=== PATIENT | male | born 1995 | race Caucasian/White ===

== ENCOUNTER 2023-01-07 10:21 | Emergency (ER) | payer OTHER, SELFPAY ==
[2023-01-07 10:25] VITALS: BP 136/92; PULSE 64; RESP 15; TEMP 36.2; O2SAT 99; BMI 25.7
--- NOTE | 2023-01-07 10:34 | ED.BACK ---
HPI - Back Pain/Injury General Chief Complaint: Back Pain/Injury Stated Complaint: back pain Time Seen by Provider: 01/07/23 10:33 Source: patient History of Present Illness HPI Narrative: 27-year-old male nonsmoker with noncontributory medical history presents with a chief complaint of low back pain since the weekend which now radiates down his left leg. He states it is sharp and burning in nature and seems to be worse when he moves and improves with rest. He denies any fever or chills and has no specific trauma. He denies any loss of control of bowel or bladder. Denies any numbness, tingling or weakness of his lower extremities. He denies the use of blood thinners. He states that he had had some problems with his back that were related to lifting weights earlier in the year but those symptoms resolved with physical therapy. This weekend he was picking up some objects at home when he felt a pulling sensation in his back which now radiates down his leg Related Data Previous Rx's Medication Instructions Recorded cyclobenzaprine 10 mg tablet 10 mg PO TID PRN muscle spasm #14 01/07/23 tabs gabapentin 300 mg capsule 300 mg PO BEDTIME #14 caps 01/07/23 hydrocodone 5 mg-acetaminophen 325 1 tab PO Q4-6H PRN pain #10 tabs 01/07/23 mg tablet ketorolac 10 mg tablet 10 mg PO Q6H PRN pain #14 tabs 01/07/23 methylprednisolone 4 mg tablets in See Rx Instructions PO .COMPLEX 01/07/23 a dose pack (Medrol (Jet)) #21 ea Allergies Allergy/AdvReac Type Severity Reaction Status Date / Time No Known Drug Allergies Allergy Verified 01/07/23 10:25 Review of Systems Review of Systems Narrative: GENERAL: Denies chills, fatigue, malaise, fever, sweats. HEENT: Denies sinus pain, ear pain, sore throat, difficulty swallowing, dizziness. RESPIRATORY: Denies dyspnea, cough, wheezing, hemoptysis, sputum. CARDIOVASCULAR: Denies chest pain, palpitations, orthopnea, edema, GASTROINTESTINAL: Denies nausea, vomiting, abdominal pain, diarrhea, constipation, melena. : Denies dysuria, frequency, incontinence, hematuria, urinary retention. MUSCULOSKELETAL: See HPI SKIN: Denies rash, skin lesions, or other NEUROLOGIC: See HPI PSYCHIATRIC: No concerning psychosocial issues. 12 point review of systems is negative except for those stated above Patient History Social History Smoking Status: Unknown if ever smoked Smoking Status: Unknown if ever smoked alcohol intake frequency: a few times a week Substance Use Type: does not use Exam Narrative Exam Narrative: GENERAL: [27] year old patient appears stated age. Well-developed patient, in mild distress. HEAD: Atraumatic. Normocephalic. EYES: Pupils equal round and reactive. Extraocular motions intact. No scleral icterus. No injection or drainage. ENT: Nose without bleeding, purulent drainage. Throat without erythema, tonsillar hypertrophy or exudate. Airway patent. NECK: Trachea midline. Non tender CARDIOVASCULAR: Regular rate and rhythm without murmurs, gallops, or rubs. RESPIRATORY: Clear to auscultation. Breath sounds equal bilaterally. No wheezes, rales, or rhonchi. GASTROINTESTINAL: Abdomen soft, non-tender, nondistended. EXTREMITIES: No edema or joint tenderness. BACK: shaker tender but free of any obvious external abnormalities. Patient exam notes decreased range of motion and muscle spasm, but no CVA tenderness, or vertebral point tenderness. There are no symptoms of cauda equina such as saddle anesthesia, and decreased reflexes, decreased sensation or strength. NEURO: AOx3. SKIN: No rash or erythema of visible areas Initial Vital Signs Initial Vital Signs: Vital Signs Temperature 97.1 F L 01/07/23 10:25 Pulse Rate 64 01/07/23 10:25 Respiratory Rate 15 01/07/23 10:25 Blood Pressure 136/92 H 01/07/23 10:25 Pulse Oximetry 99 01/07/23 10:25 Oxygen Delivery Method 01/07/23 10:25 Course Orders Ordered: Discontinued Medications Ketorolac Tromethamine (Ketorolac 30 Mg/Ml Vial) 30 mg IM NOW ONE Stop: 01/07/23 10:50 Last Admin: 01/07/23 10:55 Dose: 30 mg Documented By: MATTI Prednisone (Prednisone 20 Mg Tablet) 40 mg PO NOW ONE Stop: 01/07/23 10:50 Last Admin: 01/07/23 10:55 Dose: 40 mg Documented By: MATTI Vital Signs Vital signs: Vital Signs - 8 hr 01/07/23 10:25 Temperature 97.1 F L Pulse Rate 64 Respiratory Rate 15 Blood Pressure 136/92 H Pulse Oximetry 99 Oxygen Delivery Method Room Air MDM - Back Pain/Injury MDM Narrative Medical decision making narrative: [27] year old patient presents with low back pain and radiation into his left leg Multiple etiologies for patient's symptoms considered including, but not limited to: [Muscle spasm, disc problem, epidural abscess, hematoma versus other] Prior Charts reviewed in our EMR Primary Historian: patient Multiple etiologies of back pain considered including; Epidural abscess, cauda equina, mass occupying lesion, and other considered, however thankfully his history and physical exam did not demonstrate any red flag findings to suggest a neurosurgical emergencies present Patient's symptoms improved over duration of stay with above-stated therapies. Findings and discharge diagnosis discussed with patient/family followed by verbalization of understanding Return precautions discussed with patient/family whom verbalize understanding of diagnosis and plan Discharge Plan Departure Patient Disposition: Home Clinical Impression: Acute back pain with radiculopathy Instructions: DI for Lumbar Radiculopathy Activity Restrictions/Additional Instructions: *You have been diagnosed with [acute lumbar radiculopathy. As we discussed your signs and symptoms are consistent with back spasm or perhaps a disc that is pressing on a nerve which radiates down your leg. Thankfully you have no signs or symptoms consistent with a neurosurgical emergency at this time.] *What to do: *Please continue to take your regular medications as directed. [x ] New medication prescriptions sent to your pharmacy: [ [facility]] [ ] New medication written as a paper prescription [ ] No new medications given *Please follow up with your primary care provider in 2-3 days, call for an appointment. Let them know you were seen in the Emergency Department and that we ask that you be seen in follow up. We will electronically transmit a record of today's note if your PCP is in our system *Return to Emergency Department if you should have any new, worsening or concerning symptoms, such as [fever greater than 101 F, shaking chills, loss of control of bowel or bladder, leg weakness You have been prescribed a short course of narcotic medications. These are potentially dangerous and addictive medications that should be used carefully. While on these medications you cannot drive or operate heavy machinery. Additionally, you cannot sign legal documents or perform any duties such as this. 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 Please understand that we cannot provide further refills of narcotics or controlled substances through the ED and your pain management will need to be through your Primary Care Provider Prescriptions: New cyclobenzaprine 10 mg tablet 10 mg PO TID PRN (Reason: muscle spasm) Qty: 14 0RF hydrocodone-acetaminophen 5-325 mg tablet 1 tab PO Q4-6H PRN (Reason: pain) Qty: 10 0RF ketorolac 10 mg tablet 10 mg PO Q6H PRN (Reason: pain) Qty: 14 0RF gabapentin 300 mg capsule 300 mg PO BEDTIME Qty: 14 0RF methylprednisolone [Medrol (Jet)] 4 mg tablets,dose pack See Rx Instructions .ROUTE .COMPLEX Qty: 21 0RF Rx Instructions: orally per package directions Referrals: Boni Lino DO [Physician] - Ashley Braswell MD [Physician] - Stand Alone Forms: Patient Portal/API
[2023-01-07] MEDS: KETOROLAC 30 MG/ML VIAL IM (10:55)
[2023-01-07] MEDS: predniSONE 20 MG TABLET 40 MG PO (10:55)
--- NOTE | 2023-01-07 11:08 | PC.NURSE ---
Pt denies injury,denies loss bowel/bladder.
== END 2023-01-07 11:06 | disposition home or self-care (01) ==
PROVIDERS: Emergency Provider Emergency Medicine
DX: M54.16 Radiculopathy, lumbar region (principal)
CPT/HCPCS: 96372; 99283; J1885